=== PATIENT | male | born 2000 | race Caucasian/White ===

== ENCOUNTER 2020-12-22 12:06 | Emergency (ER) | payer OTHER, SELFPAY ==
[2020-12-22 12:18] VITALS: BP 148/74; PULSE 117; RESP 18; TEMP 36.7; O2SAT 99
--- NOTE | 2020-12-22 12:27 | W.ED.GENAD ---
Discharge Plan Disposition Patient Disposition: HOME Condition: Good Discharge Details Clinical Impression: Laceration Primary Care Provider: Fredis Stoner ED Provider: Nguyen Sanderson Home Meds and New Rx's Prescriptions: No Action No Known Home Meds RF: 0 Discharge Instructions Instructions: Laceration (ED) Additional Instructions: Refrain from using affected hand for the next 5 to 7 days Keep clean and dry Removal in 12 days Patient has any evidence of infection, redness, discharge of pus, or worsening pain, you should return for reevaluation Ibuprofen and Tylenol as needed for pain Stand Alone Forms: Work Release Medical Decision Making Tetanus updated Flexion and extension intact, neurovascularly intact Dressing applied Patient removal in 12 days No indication for antibiotics low suspicion for fracture given mechanism Patient expressed understanding Differential Diagnosis Differential Diagnosis: Laceration, abrasion, contusion, fracture HPI This 20-year-old male presents with laceration to right palm. This occurred just prior to arrival. He denies any additional injuries or history of coagulopathy. He states but occurred 20 min prior to arrival. He was on a light post. He denies any potential for retained foreign body. 10 years ago per patient. Denies sensation or strength change General Date/Time Provider Initiated Documentation: 12/22/20 12:19. Related Data Home Medications Medication Instructions Recorded Confirmed Unknown [No Known Home Meds] 04/09/19 12/22/20 Allergies Allergy/AdvReac Type Severity Reaction Status Date / Time No Known Allergies Allergy Unverified 12/22/20 12:20 General Stated Complaint: Laceration JESSICA: 4 Review of Systems Narrative: Review of systems negative x3 aside from where indicated in HPI [facility] Medical History (Updated 12/22/20 @ 13:32 by ALCIRA De Jesus) Concussion age 11-12 years- no LOC Family History Mother No problems noted. Father Asthma Other Family history of bicuspid aortic valve mat cousin Diabetes PGM Congestive heart failure MGF Heart disease MGF-required heart transplant Myocardial infarction MGF Cardiomyopathy mat uncle Asthma PGM Social History Smoking/Tobacco Use Status: Never Smoking risk assessment performed?: Yes Alcohol Intake: current Alcohol Intake frequency: a few times a month Drug use: Never Substance use type: does not use Do you feel safe at home: Yes Do you feel safe in your relationship?: Yes Exam Extrem Hand/finger images: 1. 1 laceration noted Other: Flexion extension to all 5 digits on the right affected hand within normal limits, sensation intact, brisk capillary refill distally Course Vital Signs Vital signs: Vital Signs Temperature 36.7 C 12/22/20 12:18 Pulse 117 H 12/22/20 12:18 Respiratory Rate 18 12/22/20 12:18 Blood Pressure 148/74 H 12/22/20 12:18 Pulse Oximetry 99 12/22/20 12:18 Temperature 36.7 C 12/22/20 12:18 Temperature Source Skin 12/22/20 12:18 Pulse 117 H 12/22/20 12:18 Respiratory Rate 18 12/22/20 12:18 Blood Pressure 148/74 H 12/22/20 12:18 Blood Pressure Position Sitting 12/22/20 12:18 Pulse Oximetry 99 12/22/20 12:18 Oxygen Delivery Method Room Air 12/22/20 12:18 Oxygen Flow Rate 0 12/22/20 12:18 Pain Level 5 12/22/20 12:18 Procedures Laceration Laceration 1: Site: upper extremity Side (If applicable): right Size (cm): 2.5 Description: linear Depth: simple, single layer Local Anesthetic: Lidocaine 1% Amount of anesthesia used (mL): 3 Pre-repair: wound explored, irrigated extensively and deep structures intact Skin layer closed with: nylon Size (cm): 4-0 Number of sutures: 3 Technique: simple, interrupted and other Number of sutures: 3
[2020-12-22 13:39] VITALS: BP 118/63; PULSE 87; O2SAT 98
== END 2020-12-22 13:45 | disposition home or self-care (01) ==
PROVIDERS: Emergency Provider Physician Assistant; PCP Pediatrics
DX: S61.411A Laceration without foreign body of right hand, initial encounter (principal); W26.8XXA Contact with other sharp object(s), not elsewhere classified, initial encounter; Y99.0 Civilian activity done for income or pay
CPT/HCPCS: 12001; 90471

== ENCOUNTER 2021-05-15 22:02 | Emergency (ER) | payer BC, SELFPAY ==
[2021-05-15 22:05] VITALS: BP 132/85; PULSE 96; RESP 18; TEMP 36.9; O2SAT 98
--- NOTE | 2021-05-15 22:21 | ED.GENADUL_ITS ---
Discharge Plan Disposition Patient Disposition: HOME Condition: Stable Discharge Details Clinical Impression: Closed head injury with concussion Primary Care Provider: Fredis Stoner ED Provider: Katia Vail Home Meds and New Rx's Prescriptions: No Action No Known Home Meds RF: 0 Discharge Instructions Instructions: Concussion (ED), Head Injury (ED) Additional Instructions: Head CT at this time is within normal limits. I do suspect that you have a concussion. Please rest, limit screen time, please take Tylenol or Ibuprofen with food every 4-6 hours as needed for pain and swelling. Follow up with primary care provider in 3-5 days. Return to ED sooner if any worsening headache not relieved by Tylenol or ibuprofen, vomiting, confusion, double vision or blurry vision, feeling as if your neck is unstable or concerns. Increase oral fluids. Stand Alone Forms: Work Release Referrals: Fredis Stoner MD [Primary Care Provider] - Medical Decision Making 21-year-old male presents to the ED chief complaint of head injury which occurred approximately 630 this evening. Patient was walking approximately a foot off the ground on a wagon baling some pain when he slipped fell backwards hitting his back and head. He denies loss of consciousness and girlfriend who witnessed the fall denies loss of consciousness however patient is complaining of nausea, mild to a, reports that whole body went tingly, fatigue and mild nausea. Took some Advil after event. Discussed concussion with patient and girlfriend and home care, verbalized understanding. Will order head CT out of an abundance of caution. Offered antimedic patient declined at this time. COMPARISON: No relevant prior studies available. FINDINGS: Brain: No acute intracranial hemorrhage, mass-effect, midline shift, or extra- axial collection is seen. The mauro white matter differentiation appears preserved. Cerebral ventricles: The ventricular system and basilar cisterns appear appropriate in size and configuration. Paranasal sinuses: The visualized paranasal sinuses appear well-aerated. Mastoid air cells: The visualized mastoid air cells appear well aerated. Auditory system: The middle ear cavities appear clear. Bones/joints: The bony calvarium appears intact. No depressed skull fracture is seen. Soft tissues: No gross focal scalp hematoma is seen. IMPRESSION: No acute intracranial hemorrhage or depressed skull fracture. Patient instructed to follow-up with PCP discussed head injury red flags, verbalized understanding. This text was generated using [employer] system, please disregard any oddities of phrase or misspellings. HPI General Mode of arrival: ambulatory . Date/Time Provider Initiated Documentation: 05/15/21 22:08 . Limitations to Documentation: no limitations . Information obtained by: patient and family (Girlfriend) . HPI Narrative: 21-year-old male presents to the ED chief complaint of head injury which occurred approximately 630 this evening. Patient was walking approximately a foot off the ground on a wagon baling some pain when he slipped fell backwards hitting his back and head. He denies loss of consciousness and girlfriend who witnessed the fall denies loss of consciousness however patient is complaining of nausea, mild to a, reports that whole body went tingly, fatigue and mild nausea. Took some Advil after event. Related Data Home Medications Medication Instructions Recorded Confirmed Unknown [No Known Home Meds] 04/09/19 12/22/20 Allergies Allergy/AdvReac Type Severity Reaction Status Date / Time No Known Allergies Allergy Unverified 12/22/20 12:20 General Stated Complaint: HeadInjury JESSICA: 3 Review of Systems Narrative: Constitutional: Negative for weight loss, alert and oriented, well groomed, normal body habitus, appears comfortable. HEENT: Denies blurry vision, nasal discharge, sore throat, trouble swallowing. Chest: Denies chest pain, palpitations, irregular rhythm, hypertension. Respiratory: Denies Shortness of breath, cough, hemoptysis. GI: Denies abdominal pain, vomiting, diarrhea, constipation. Mild nausea : Denies dysuria, hematuria, flank pain, rectal bleeding. Neuro: Denies dizziness, blurry vision, weakness, syncope, or facial numbness. Reports headache, feeling fuzzy Hematologic: Denies easy bruising, intolerance to heat or cold, hair loss. PFSH Medical History Concussion age 11-12 years- no LOC Family History Mother No problems noted. Father Asthma Other Family history of bicuspid aortic valve mat cousin Diabetes PGM Congestive heart failure MGF Heart disease MGF-required heart transplant Myocardial infarction MGF Cardiomyopathy mat uncle Asthma PGM Social History Smoking/Tobacco Use Status: Never Smoking risk assessment performed?: Yes Alcohol Intake: current Alcohol Intake frequency: a few times a month Drug use: Never Substance use type: does not use Do you feel safe at home: Yes Do you feel safe in your relationship?: Yes Exam Narrative Exam Narrative: General: Well Developed, Awake and Alert, conversant. Skin: Warm and Dry HEENT: Head: Small approximately 1 cm hematoma noted to occipital scalp, no palpable skull fractures, no step-off, Normocephalic Eyes: Pupils PERRLA, EOM's intact. No periorbital eccymosis or step off. Conjunctive are injected bilaterally. Ears: Canal patent. Tympanic membranes are clear . No hitchcock's sign, no hemptympanum. Nose/Face: Atraumatic. Facial bones nontender to palpation and stable with manipulation. Mouth/Throat: No intraoral trauma. Teeth and mandible are intact. Neck: No midline tenderness, no step off, no deformity to palpation of C-spine. Trachea midline. Chest: No surface trauma. Nontender without crepitus or deformity. Lungs clear to ausculatation bilaterally. Heart: RRR, no rubs, murmurs or gallop. Abdomen: No abrasions, ecchymosis, or surface trauma. Nondistended. Nontender to palpation no guarding, rebound, or rigidity. Pelvis: Nontender to palpation and stable to compression. Femoral pulses strong and equal Extremities no surface trauma. Sensation intact. Peripheral pulses intact and equal. Neuro: ANO x4, GCS 15, cranial nerves II through XII intact. Motor and sensory exam nonfocal. Reflexes are symmetric. Course Vital Signs Vital signs: Vital Signs Temperature 36.9 C 05/15/21 22:05 Pulse 96 H 05/15/21 22:05 Respiratory Rate 18 05/15/21 22:05 Blood Pressure 132/85 05/15/21 22:05 Pulse Oximetry 98 05/15/21 22:05 Temperature 36.9 C 05/15/21 22:05 Temperature Source Temporal Artery Scan 05/15/21 22:05 Pulse 96 H 05/15/21 22:05 Respiratory Rate 18 05/15/21 22:05 Respiratory Effort Non-Labored 05/15/21 22:09 Blood Pressure 132/85 05/15/21 22:05 Blood Pressure Position Sitting 05/15/21 22:05 Pulse Oximetry 98 05/15/21 22:05 Pain Level 5 05/15/21 22:05
--- NOTE | 2021-05-15 22:33 | DI.CT_ITS ---
Exam(s) CT HEAD WO EXAM: CT HEAD WO CLINICAL HISTORY: Closed head injury,. TECHNIQUE: Imaging Protocol: Axial computed tomography images with coronal and sagittal reformatted images were created and reviewed COMPARISON: No exams were available for comparison FINDINGS: Ventricles and Extra axial spaces: Normal in size and morphology for the patient's age. Hemorrhage: None. Cerebral parenchyma: Normal. Midline shift: None. Brainstem/Cerebellum: Normal. Calvarium: Normal. Visualized Paranasal sinuses/Mastoids: Clear. Soft Tissues: Unremarkable. IMPRESSION: No acute intracranial process. RADIATION DOSE DELIVERED: 696.9mGy.cm Total DLP DATA REPOSITORY: All CT scans at this facility are submitted to the National Radiology Data Registry (NRDR) Dose Index Registry (DIR) with the [employer] [place] [employer] (ACR). RADIATION OPTIMIZATION: All CT scans at this facility use at least one of these dose optimization te chniques: automated exposure control; mA and/or kV adjustment per patient size (includes targeted exa ms where dose is matched to clinical indication); or iterative reconstruction.
--- NOTE | 2021-05-15 22:42 | DI.VRAD_ITS ---
PROCEDURE INFORMATION: Exam: CT Head Without Contrast Exam date and time: 05/15/2021 10:22 PM Age: 21 years old Clinical indication: Other: Closed head injury TECHNIQUE: Imaging protocol: Computed tomography of the head without contrast. Radiation optimization: All CT scans at this facility use at least one of these dose optimization techniques: automated exposure control; mA and/or kV adjustment per patient size (includes targeted exams where dose is matched to clinical indication); or iterative reconstruction. COMPARISON: No relevant prior studies available. FINDINGS: Brain: No acute intracranial hemorrhage, mass-effect, midline shift, or extra-axial collection is seen. The mauro white matter differentiation appears preserved. Cerebral ventricles: The ventricular system and basilar cisterns appear appropriate in size and configuration. Paranasal sinuses: The visualized paranasal sinuses appear well-aerated. Mastoid air cells: The visualized mastoid air cells appear well aerated. Auditory system: The middle ear cavities appear clear. Bones/joints: The bony calvarium appears intact. No depressed skull fracture is seen. Soft tissues: No gross focal scalp hematoma is seen. IMPRESSION: No acute intracranial hemorrhage or depressed skull fracture. Dictated and Authenticated by: Raza Rodriguez MD. Ordering:MICHELLE Montalvo MD
[2021-05-15 22:52] VITALS: BP 132/85; PULSE 96; RESP 18; TEMP 36.9; O2SAT 98
== END 2021-05-15 22:50 | disposition home or self-care (01) ==
PROVIDERS: Emergency Provider Registered Nurse Emergency; PCP Pediatrics
DX: S09.8XXA Other specified injuries of head, initial encounter (principal); S06.0X0A Concussion without loss of consciousness, initial encounter; W01.198A Fall on same level from slipping, tripping and stumbling with subsequent striking against other object, initial encounter; R40.2412 Glasgow coma scale score 13-15, at arrival to emergency department
CPT/HCPCS: 99284; 70450; 99283

== ENCOUNTER 2023-10-25 01:41 | Emergency (ER) | payer BC, SELFPAY ==
[2023-10-25 01:44] VITALS: BP 169/96; PULSE 120; RESP 16; TEMP 36.4; O2SAT 99
[2023-10-25 01:50] VITALS: BP 169/96; PULSE 120; RESP 16; TEMP 36.4; O2SAT 99
--- NOTE | 2023-10-25 01:53 | W.ED.GENAD ---
Discharge Plan Disposition Patient Disposition: Home Condition: Good Discharge Details Clinical Impression: Dental infection Primary Care Provider: Unknown,Unknown ED Provider: Preston Toth Home Meds and New Rx's Prescriptions: New amoxicillin-pot clavulanate 875-125 mg tablet 1 tab PO BID Qty: 14 0RF Discharge Instructions Instructions: Dental Abscess (ED) Additional Instructions: At this time there is an infection in your postoperative site. I cannot see or palpate an abscess currently, however 1 may develop with time. Will start you on an antibiotic called Augmentin. Please take this as directed. Please continue to take 1000 mg of Tylenol and 800 mg of ibuprofen every 6 hours. These are the maximum doses. Please follow-up closely with your dentist tomorrow morning. If you notice any worsening of your symptoms, or any new symptoms such as vomiting, diarrhea, fever, chills, shortness of breath, difficulty swallowing or drinking, chest pain, numbness, weakness, or fainting , please return immediately to the emergency department for reevaluation. Please follow up with your primary care provider as soon as possible for reassessment and reevaluation. As always, it was a pleasure participating in your medical care today. Medical Decision Making 23-year-old male presents today for right lower tooth/postop slight swelling. Patient had his wisdom teeth removed 4 days ago. He is been taking Tylenol and Motrin as directed. Over the last 24 to 36 hours he has noted swelling in the right lower jaw at the postoperative site, as well as what he describes as quite disgusting and smelly discharge. He denies any fever or chills. No headache. No difficulty swallowing or drinking or eating. No other complaints at this time. Pain is described as mild. Exam demonstrates mild swelling around the posterior right lower wisdom tooth area. No active discharge that I can visualize. No signs of airway compromise, no evidence of Ludewig's angina, no periapical abscess on palpation. Suspect mild infection for his postoperative site. No evidence of large abscess, airway compromise or other significant abnormality necessitating IV antibiotics or emergent ENT consult. Will start the patient on Augmentin, recommend continued Tylenol and Motrin. Recommend follow close follow-up with his dentist tomorrow morning. Discussed red flags for which to return. I have extensively reviewed the treatment plan and discharge instructions with the patient. I have addressed all patient concerns at this time. The patient was made aware of what symptoms to monitor for that would warrant a return to the emergency department. Discussed the plan with the patient, they demonstrate verbal understanding and agreement with our assessment and plan at this time. The documentation in this chart was dictated using [employer] dictation software. Please excuse any dictation errors. HPI General Date/Time Provider Initiated Documentation: 10/25/23 01:47. HPI Narrative: 23-year-old male presents today for right lower tooth/postop slight swelling. Patient had his wisdom teeth removed 4 days ago. He is been taking Tylenol and Motrin as directed. Over the last 24 to 36 hours he has noted swelling in the right lower jaw at the postoperative site, as well as what he describes as quite disgusting and smelly discharge. He denies any fever or chills. No headache. No difficulty swallowing or drinking or eating. No other complaints at this time. Pain is described as mild. Related Data Home Medications Medication Instructions Recorded Confirmed amoxicillin 875 mg-potassium 1 tab PO BID #14 tabs 10/25/23 clavulanate 125 mg tablet Previous Rx's Medication Instructions Recorded amoxicillin 875 mg-potassium 1 tab PO BID #14 tabs 10/25/23 clavulanate 125 mg tablet Allergies Allergy/AdvReac Type Severity Reaction Status Date / Time No Known Allergies Allergy Unverified 10/25/23 01:52 General Stated Complaint: DentalOral JESSICA: 4 Review of Systems All systems reviewed & are unremarkable except as noted in HPI and below PFSH All Active Problems Dental infection (Acute) Closed head injury with concussion (Acute) Laceration (Acute) Well adolescent visit (Acute 01/05/18) Medical History Concussion age 11-12 years- no LOC Family History Mother No problems noted. Father Asthma Other Family history of bicuspid aortic valve mat cousin Diabetes PGM Congestive heart failure MGF Heart disease MGF-required heart transplant Myocardial infarction MGF Cardiomyopathy mat uncle Asthma PGM Social History Smoking/Tobacco Use Status: Never Smoking risk assessment performed?: Yes Alcohol Intake: current Alcohol Intake frequency: a few times a month Drug use: Never Substance use type: does not use Do you feel safe at home: Yes Do you feel safe in your relationship?: Yes Exam Narrative Exam Narrative: 1.Const: Well-nourished, Well-developed, appearing stated age 2.Eyes: PERRL, no conjunctival injection, and symmetrical lids. 3.ENT: Atraumatic external nose and ears. Moist MM. Neck: Symmetric, trachea midline, No thyromegaly. Mild swelling around the right lower posterior molar, however no swelling around the gumline or fluctuance to suggest focal abscess. Slightly foul odor is noted. No signs of airway compromise whatsoever. No tonsillar swelling or uvular deviation. No trismus 4.CVS: +S1/S2, No murmurs or gallops. Peripheral pulses 2+ and equal in all extremities. Brisk capillary refill in all extremities. 5.RESP: Unlabored respiratory effort. Clear to auscultation bilaterally. No wheezes rales or rhonchi 6.GI: Soft, Nontender/Nondistended, No hepatosplenomegaly. No guarding or rebound. 7.MSK: Normocephalic/Atraumatic, Extremities w/o deformity or ttp No cyanosis or clubbing, Normal movement of all extremities 8.Skin: Warm, Dry. No rashes or lesions. 9.Neuro: motorcycle deliverer II-XII grossly intact. Sensation grossly intact, no focal neurologic deficits. 10.Psych: (AAO) x3. Appropriate mood and affect Course Vital Signs Vital signs: Vital Signs Temperature 36.4 C L 10/25/23 01:44 Pulse 120 H 10/25/23 01:44 Respiratory Rate 16 10/25/23 01:44 Blood Pressure 169/96 H 10/25/23 01:44 Pulse Oximetry 99 10/25/23 01:44 Temperature 36.4 C L 10/25/23 01:50 Temperature Source Temporal Artery Scan 10/25/23 01:50 Pulse 120 H 10/25/23 01:50 Respiratory Rate 16 10/25/23 01:50 Respiratory Effort Normal, Non-Labored 10/25/23 01:49 Blood Pressure 169/96 H 10/25/23 01:50 Blood Pressure Position Sitting 10/25/23 01:50 Pulse Oximetry 99 10/25/23 01:50 Oxygen Delivery Method Room Air 10/25/23 01:50 Oxygen Flow Rate 0 10/25/23 01:44
[2023-10-25] MEDS: Amox. 875/Clav. 125, 2 TABS/BTL 1 TAB PO (01:58)
== END 2023-10-25 02:00 | disposition home or self-care (01) ==
PROVIDERS: Emergency Provider Student in an Organized Health Care Education/Training Program
DX: K04.7 Periapical abscess without sinus (principal); Z98.818 Other dental procedure status
CPT/HCPCS: 99283